=== PATIENT | female | born 1995 | race African-American/Black ===

== ENCOUNTER 2017-09-10 23:41 | Emergency (ER) | payer OTHER ==
[~2017-09-10] VITALS: Ht 170.2 cm; Wt 94.4 kg
[~2017-09-10 23:41] MED LIST: AMOX875 PO; BENZ1CAP51 PO; DICL50 PO; PRED50TA PO
[2017-09-10 23:45] VITALS: BP 142/75; PULSE 85; RESP 16; TEMP 99.2; O2SAT 99
[2017-09-11] MEDS ORDERED: AMOX500C PO (00:14)
--- NOTE | 2017-09-11 00:17 | PD ---
HPI Chief Complaint: Left ear pain Time Seen by Provider: 00:06 Travel History International Travel<30 days: No Contact w/Intl Traveler<30days: No Traveled to known affect area: No History of Present Illness HPI The patient was seen and examined in the presence of the nurse. This patient complains of left ear pain. Duration 3 days. Severity is moderate. No fever. PFSH Past Medical History Asthma: Yes Developmental Delay: No Diminished Hearing: No Respiratory: Yes (ASTHMA) Immunizations Current: Yes : 0 Para: 0 Miscarriage: 0 : 0 Social History Alcohol Use: No Tobacco Use: Yes Substance Use: No Allergies-Medications (Allergen,Severity, Reaction): Coded Allergies: No Known Allergies (Unverified , 02/11/16) Reported Meds & Prescriptions Reported Meds & Active Scripts Active Amoxicillin 500 Mg Cap 500 Mg PO TID Benzonatate 200 Mg Cap 200 Mg PO TID PRN Amoxicillin 875 Mg Tab 875 Mg PO BID Deltasone (Prednisone) 50 Mg Tab 50 Mg PO DIRECTED 1 TAB PO DAILY X 4 DAYS, THEN 1/2 TAB PO DAILY X 4 DAYS. Voltaren (Diclofenac Sodium) 50 Mg Tabec 50 Mg PO TID Review of Systems General / Constitutional: No: Fever HENT: No: Headaches Cardiovascular: No: Chest Pain or Discomfort Respiratory: No: Shortness of Breath Physical Exam Narrative Right TM looks normal Left TM is distorted with purulent appearing material behind it The canal looks normal. No pinna or mastoid tenderness Oral cavity clear RESPIRATORY: Respiratory effort unlabored, no retractions or use of accessory muscles. Breath sounds are clear and symmetric. SKIN: Focused skin assessment reveals no rash or ulcers. Skin is warm and dry. Palpation shows no induration or nodules. Data Data Last Documented VS Vital Signs Date Time Temp Pulse Resp B/P (MAP) Pulse Ox O2 Delivery O2 Flow Rate FiO2 09/10/17 23:45 99.2 85 16 142/75 (97) 99 MDM Medical Decision Making Medical Screen Exam Complete: Yes Emergency Medical Condition: Yes Medical Record Reviewed: Yes Differential Diagnosis Otitis media, otitis externa, URI Narrative Course I have reviewed the patient's electronic medical record. Presentation seems consistent with a left-sided otitis media Amoxicillin prescribed Diagnosis Primary Impression: Acute suppur left otitis media w/o spontan rupture tympanic membrane Qualified Codes: H66.002 - Acute suppurative otitis media without spontaneous rupture of ear drum, left ear Additional Instructions: The patient was advised to follow up with their physician and return if they worsen. Med/Other Pt SpecificInfo: Prescription(s) given Scripts Amoxicillin (Amoxicillin) 500 Mg Cap 500 MG PO TID for Infection, #21 CAP 0 Refills Prov: Andres Hassan MD 09/11/17 Disposition: 01 DISCHARGE HOME Condition: Stable Andres Hassan MD Sep 11, 2017 00:17
== END 2017-09-11 00:52 | disposition home or self-care (01) ==
LOC: PHED 23:41
DX: H66.002 Acute suppurative otitis media without spontaneous rupture of ear drum, left ear (principal); Z72.0 Tobacco use
CPT/HCPCS: 99283